=== PATIENT | female | born 1960 | race Caucasian/White ===

== ENCOUNTER → 2019-01-01 | Day surgery (SDC) | payer BC ==
[~2019-01-01] MED LIST: MIDAZOLAM HCL 2 MG/2 ML VIAL ONE; PROPOFOL IV EMULSION 10 MG/ML 50 ML VIAL ONE
--- OUTSIDE RECORDS SUMMARY | 2019-01-01 05:30 | XMS REPORT | Summary of Care ---
Author Author COTY Morataya, JOHN Wiley Unknown Address [facility] Phone Unavailable Care Team Providers Care Community Worker Name Role Phone JOHN ANSARI M.D. Unavailable Unavailable VIRGINIE LYON, NHUNG RICARDO Unavailable Unavailable Unavailable Unavailable Functional Status Name Dates Details Functional status health issues are not documented Status: Name Dates Details Cognitive status health issues are not documented Status: Problems Name Dates Details Postmenopausal bleeding (627.1, N95.0) Status: Active Medications Name Dates Details No Reported Medications Active Allergies and Adverse Reactions Name Dates Details Benadryl CAPS (Allergy) Status: Active Dayquil LIQD (Allergy) Status: Active Ibuprofen TABS (Allergy) Status: Active Lisinopril TABS (Allergy) Status: Active Naproxen TABS (Allergy) Status: Active Paxil TABS (Allergy) Status: Active Vicodin TABS (Allergy) Status: Active Wellbutrin TABS (Allergy) Status: Active Past Medical History Name Dates Details History of Heart disease (429.9, I51.9) Status: Resolved History of High blood pressure (401.9, I10) Status: Resolved Procedures Procedure Dates Details US Pelvis with Pelvis Transvaginal [id number] Date: 09-Aug-2017 History of section Completed History of tubal ligation Completed History of cholecystectomy Completed History of tonsillectomy Completed History of knee replacement Completed Immunization Name Dates Details Immunizations not documented Family History Name Dates Details Family history of malignant neoplasm of breast (V16.3, Z80.3) Status: Active Name Dates Details Family history of malignant neoplasm of breast (V16.3, Z80.3) Status: Active Name Dates Details Family history of colon cancer (V16.0, Z80.0) Status: Active Family history of lung cancer (V16.1, Z80.1) Status: Active Name Dates Details Family history of malignant neoplasm of breast (V16.3, Z80.3) Status: Active Social History Name Dates Details - Status: Name Dates Details Never smoker Vital Signs Date Test Result Details [id number] BP Systolic 122 mm[Hg] Status: Comments: Location: RUE; Position: Sitting BP Diastolic 65 mm[Hg] Status: Comments: Location: RUE; Position: Sitting Height 64 in Status: Weight 340 lb Status: Body Mass Index Calculated 58.36 kg/m2 Status: Body Surface Area Calculated 2.45 m2 Status: Temperature 98.1 f Status: Comments: Method: Oral Heart Rate 98 /min Status: Respiration Rate 18 /min Status: Results Date Description Value Details [id number] Tobacco Use Screening Completed DONE Plan of Care Name Dates Details Planned Observations US Pelvis with Pelvis Transvaginal [id number] On: 20-Sep-2017 Intent Planned Goals not documented Planned Encounters Follow-up visit in 2 months Instructions Name Dates Details Instructions not documented Encounters Appointment; JOHN ANSARI M.D. Encounter Diagnosis: Problem not documented On: 09-Aug-2017 14:00
--- OUTSIDE RECORDS SUMMARY | 2019-01-01 05:30 | XMS REPORT ---
Author Author [facility] Address Unknown Phone Unavailable Care Team Providers Care Construction Supervisor/Carpenter Name Role Phone Unavailable Unavailable Problems This patient has no known problems. Allergies, Adverse Reactions, Alerts This patient has no known allergies or adverse reactions. Medications This patient has no known medications. Results Test Description Test Time Test Comments Text Results Atomic Results Result Comments SCR MAMM BILATERAL STAR CAD DIGITAL 2018-04-04 10:21:27 - SCR MAMM BILATERAL STAR CAD DIGITALBILATERAL DIGITAL SCREENING MAMMOGRAM 3D/2D WITH CAD: 04/04/2018CLINICAL: Asymptomatic. Digital breast tomosynthesis was performed in addition to routine CC and MLO views. Current mammographic images were evaluated by either a [employer] M-Vu or a [employer] ImageChecker CAD (computer aided detection system). Comparison is made to exams dated 03/16/2017 mammogram, mammogram, and 03/06/2015 mammogram - [facility]. There are scattered fibroglandular tissues in both breasts. No suspicious mass, architectural distortion, malignant type calcification, or lymph node abnormality detected. Breast architecture is stable compared to prior exams.IMPRESSION: NEGATIVEThere is no mammographic evidence of malignancy. Resume annual screening mammography in one year. Mitch Nunez M.D. ss/sosa:04/04/2018 10:21:27 Computerized Mill Recorder: Neena White , [facility]: BIRADS 1-2 Normal Mammogram BI-RADS: 1 Negative
[2019-01-01 08:50] VITALS: BP 127/60
--- NOTE | 2019-01-01 11:15 | Operative Report ---
DATE OF PROCEDURE: SURGEON: Axel Cr MD PROCEDURE: Colonoscopy. PREPROCEDURE DIAGNOSIS: The patient with history of rectal bleeding, history of colon polyps, and family history of colon cancer. DESCRIPTION OF PROCEDURE: After informed and written consent, premedications with monitored anesthesia care. Standard adult video Olympus colonoscope was introduced into the rectum and all the way into the terminal ileum. Terminal ileum, cecum, ascending colon, and appendiceal orifice appeared to be normal. At the hepatic flexure, there was a 6 mm polyp, sessile, just removed using a cold snare. Transverse colon was unremarkable. Splenic flexure showed a 5 mm polyp, removed with cold snare and distal descending colon showed another 5 mm polyp, removed with cold snare. Retroflexion of the rectum showed internal hemorrhoids. No evidence of any active bleeding was identified. IMPRESSION: 1. Hemorrhoids. 2. Colon polyps. RECOMMENDATIONS: Follow up in the office in a few weeks to discuss findings of the biopsies. Repeat colonoscopy in 3 years. If hemorrhoidal bleeding persist, further intervention may be needed. Local hemorrhoidal management recommendations have been advised. Axel Cr MD SR/MODL /[id number]
== END | disposition home or self-care (01) ==
LOC: OR 05:27
PROVIDERS: ATTEND Internal Medicine Gastroenterology
DX: K92.1 Melena (principal); D12.3 Benign neoplasm of transverse colon; D12.4 Benign neoplasm of descending colon; K64.8 Other hemorrhoids; Z71.3 Dietary counseling and surveillance; E66.01 Morbid (severe) obesity due to excess calories; Z68.43 Body mass index [BMI] 50.0-59.9, adult; Z87.891 Personal history of nicotine dependence; Z80.0 Family history of malignant neoplasm of digestive organs
CPT/HCPCS: 45385; 93005; J2250; J2704

== ENCOUNTER 2021-05-24 15:19 | Emergency (ER) | payer BC, OTHER ==
[2021-05-24] MEDS ORDERED: SODIUM CHLORIDE 0.9% 1000ML 1,000 ML IV SCH (16:00)
[2021-05-24] MEDS ORDERED: ONDANSETRON HCL INJ 2MG/ML 2ML 2 MG/ML VIAL IV PRN (16:00)
[2021-05-24] MEDS ORDERED: CASIRIVIMAB/IMDEVIMAB 10 ML in SODIUM CHLORIDE 0.9% 100 ML IV ONE (16:00)
[2021-05-24 16:12] LABS: BASOPHILS % 0.3 % (0.0-1.0); EOSINOPHILS % 0.3 % (0.0-6.0); HEMATOCRIT 42.4 % (34.2-44.1); HEMOGLOBIN 12.9 g/dL (12.0-16.0); LYMPHOCYTES # (AUTO) 0.7 (1.0-3.2); LYMPHOCYTES % 17.4 % (18.0-39.1); MEAN CORPUSCULAR HEMOGLOBIN 26.1 pg (28-32); MEAN CORPUSCULAR HGB CONC 30.4 g/dL (31-35); MEAN CORPUSCULAR VOLUME 85.8 fL (81-99); MONOCYTES # (AUTO) 0.2 (0.2-0.8); MONOCYTES % 5.5 % (4.4-11.3); NEUTROPHILS % 75.7 % (38.7-80.0); PLATELET COUNT 192 x10e3/uL (140-360); RED BLOOD COUNT 4.94 x10e6/uL (3.6-5.1); RED CELL DISTRIBUTION WIDTH 13.7 % (11.7-14.4)
[2021-05-24 16:30] LABS: ALBUMIN 3.2 g/dL (3.5-5.0); ALBUMIN/GLOBULIN RATIO 0.9 (0.8-2.0); ANION GAP 13.9 mmol/L (8-16); CALCIUM 7.9 mg/dL (8.4-10.2); CREATININE, SERUM 0.74 mg/dL (0.57-1.11); POTASSIUM 3.9 mmol/L (3.5-5.1)
[2021-05-24] MEDS ORDERED: TESSALON PERLE100 MG PO (17:46)
[2021-05-24] MEDS ORDERED: PREDNISONE50 MG PO (17:46)
[2021-05-24] MEDS ORDERED: ONDANSETRON ODT4 MG PO (17:46)
[2021-05-24] MEDS ORDERED: PROAIR HFA INH8.5 GM PEG (17:46)
[2021-05-24] MEDS ORDERED: AZITHROMYCIN250 MG PO (17:46)
== END 2021-05-24 21:00 | disposition home or self-care (01) ==
LOC: ER 15:50
DX: U07.1 COVID-19 (principal); J12.82 Pneumonia due to coronavirus disease 2019; E86.0 Dehydration; R19.7 Diarrhea, unspecified; R11.10 Vomiting, unspecified
CPT/HCPCS: 36415; 71045; 80053; 85025; 99284; J2405; J7030; J7050